=== PATIENT | male | born 1975 | race Caucasian/White ===

== ENCOUNTER 2017-08-26 14:47 | Day surgery (SDC) | payer BC ==
[~2017-08-26 14:47] MED LIST: Glycopyrrolate 0.2 MG/ML 5 ML SYRINGE ONE; Lidocaine 1% PF 5 ML VIAL ONE; Propofol 200 MG/20 ML VIAL ONE
--- NOTE | 2017-08-26 15:26 | RAD ---
AP VIEW CHEST: Date: 08/26/17 HISTORY: left lower quadrant pain. Nausea and vomiting. FINDINGS: AP view of chest obtained. The lungs are well aerated. No evidence of active intrathoracic disease is seen. No evidence of effusions, pneumonia, or pneumothorax seen. IMPRESSION: Unremarkable AP view chest. POS: [facility]
[2017-08-26] MEDS ORDERED: Ketorolac Tromethamine 30 MG/ML VIAL ONE (15:35)
[2017-08-26] MEDS ORDERED: Bupivacaine/Epinephrine 0.25% 30 ML VIAL ONE (16:32)
[2017-08-26] MEDS ORDERED: Midazolam HCl 2 mg/2 ml Vial ONE (16:53)
[2017-08-26] MEDS ORDERED: Fentanyl 100 MCG/2 ML VIAL ONE (16:53)
[2017-08-26] MEDS ORDERED: Meperidine HCl/PF 25 MG/ML VIAL ONE (18:06)
[2017-08-26] MEDS ORDERED: Ondansetron HCl/PF 4 MG/2 ML Vial ONE (18:15)
[2017-08-26] MEDS ORDERED: Ondansetron HCl/PF 4 MG/2 ML Vial IVP PRN (18:22)
[2017-08-26] MEDS ORDERED: Meperidine HCl/PF 25 MG/ML VIAL IV PRN (18:22)
[2017-08-26] MEDS ORDERED: Promethazine HCl 25 MG/ML VIAL IM/IV PRN (18:22)
--- NOTE | 2017-08-26 22:11 | HP ---
HISTORY OF PRESENT ILLNESS: Shilo Pollock is a 42-year-old male, ranch worker, lives in [place] who presents with a less than 24-hour history of abdominal pain localizing to his right lower quadran t. Pain onset followed by nausea, subsequently vomiting, increased pain with movement. He was seen in [facility], underwent a CAT scan confirming appendicitis, was transferred to [facility], Dr. Morrissey evaluated him. His white blood cell count is 14, hemoglobin 16, sodium 139, potassium 3 .9, chloride 101, BUN 9, creatinine 0.81, bilirubin 2.3. REVIEW OF SYSTEMS: Noncontributory. ALLERGIES: None. TOBACCO: None. ALCOHOL: Socially. MEDICATIONS: Lisinopril. PAST SURGICAL HISTORY: ORIF right hip fracture with postoperative infection requiring PICC line, lef t inguinal hernia repair. PAST MEDICAL HISTORY: Hypertension. REVIEW OF SYSTEMS: Ten point noncontributory. PHYSICAL EXAMINATION: VITAL SIGNS: 130/100, 84, 18, 98.4 degrees, 93 kilograms. HEENT: Unremarkable. LUNGS: Clear to auscultation. CARDIAC: Regular rate and rhythm without murmur or gallop. ABDOMEN: Soft, tenderness in right upper quadrant with guarding and rebound. EXTREMITIES: Unremarkable. ASSESSMENT AND PLAN: 1. Acute appendicitis. I have recommended laparoscopic video appendectomy. Risk of infection, blee ding, visceral injury, possibly open procedure, fistula explained and he consents. 2. Hypertension.
--- NOTE | 2017-08-26 23:22 | OP ---
DATE OF PROCEDURE: 08/26/2017 PREOPERATIVE DIAGNOSIS: Acute appendicitis. POSTOPERATIVE DIAGNOSIS: Acute appendicitis. PROCEDURE: Laparoscopic video appendectomy. SURGEON: Dr. Scotty Garrett. ANESTHESIA: General. Local 0.5% Marcaine with epinephrine, 30 mL ESTIMATED BLOOD LOSS: None. FINDINGS: Acute appendicitis. PROCEDURE IN DETAIL: The patient taken to the operating room where under general anesthesia, abdomen was clipped of hair, prepared with ChloraPrep, draped in routine fashion. Ramon catheter placed at the beginning of the procedure and removed at the end. Local anesthetic infiltrated into skin and busby bcutaneous tissue about all port sites. Right lateral subcostal incision made and pneumoperitoneum t o 15 mmHg obtained with the Veress needle, replacing it with a 5 port. Video laparoscope inserted. The patient had a midline incision, periumbilical pubis. There were omental adhesions to the umbilic al area and under laparoscopic visualization. Local anesthetic infiltrated into skin and subcutaneou s tissue, infraumbilical and a 5-mm trocar catheter placed and staying clear of these adhesions and v ideo laparoscope moved to this port site. Suprapubic incision made and a 12 port placed. Appendix w as noted to be acutely inflamed. Mesoappendix taken down with the LigaSure device to the stump of th e appendix divided with Endo-DANITA blue load stapler. Stapled cecal stump was hemostatic and secure as the appendix was removed through an Endobag and submitted to Pathology. Good hemostasis ensured wit h clips on the mesoappendix and staple line. Irrigant and pneumoperitoneum evacuated. All instrumen ts removed and suprapubic fascia approximated with 0 Vicryl and all skin incisions approximated with interrupted subdermal 4-0 Monocryl and DermaGlue applied.
== END 2017-08-26 19:06 | disposition home or self-care (01) ==
LOC: ERS 14:47 → SDC 16:00
PROVIDERS: ATTEND Specialist
PROC: 0DTJ4ZZ Resection of Appendix, Percutaneous Endoscopic Approach (ICD-10-PCS; principal; 2017-08-26)
DX: K35.89 Other acute appendicitis (principal); I10 Essential (primary) hypertension; Z79.82 Long term (current) use of aspirin; Z79.899 Other long term (current) drug therapy; Z98.890 Other specified postprocedural states
CPT/HCPCS: 71010; 88304; 93005; 96374; J0131; J1885; J2001; J2175; J2250; J2405; J2704; J3010